=== PATIENT | male | born 1965 | race Caucasian/White ===

== ENCOUNTER 2017-11-28 08:52 | Outpatient (CLI) | payer BC ==
--- NOTE | 2017-11-28 09:38 | RAD ---
PA AND LATERAL VIEWS OF CHEST: Date: 11/28/17 HISTORY: Dyspnea. FINDINGS: The heart size in normal. The lungs are expanded without focal areas of consolidation, pneumothoraces , or pleural effusions. No acute osseous abnormalities are seen. IMPRESSION: No radiographic evidence of acute cardiopulmonary process. POS: [facility]
== END 2017-11-28 08:53 | disposition home or self-care (01) ==
LOC: RAD 08:52
PROVIDERS: ATTEND Internal Medicine Critical Care Medicine
DX: R06.00 Dyspnea, unspecified (principal)
CPT/HCPCS: 71046

== ENCOUNTER 2018-01-15 09:26 | Outpatient (CLI) | payer BC ==
--- NOTE | 2018-01-15 10:20 | RAD ---
TWO VIEW CHEST: History: Dyspnea. FINDINGS: The lungs are clear. No infiltrate. Vascular markings normal. Heart and mediastinum unremarkable. Oss eous structures unremarkable. IMPRESSION: No acute finding. POS: [facility]
== END 2018-01-15 09:27 | disposition home or self-care (01) ==
LOC: RAD 09:26
PROVIDERS: ATTEND Internal Medicine Critical Care Medicine
DX: R06.00 Dyspnea, unspecified (principal)
CPT/HCPCS: 71046

== ENCOUNTER 2018-08-05 09:16 | Outpatient (CLI) | payer BC ==
--- NOTE | 2018-08-05 09:33 | RAD ---
CHEST 2 VIEWS: Date: 08/05/18 COMPARISON: 01/15/18. HISTORY: Dyspnea. FINDINGS: Normal cardiac silhouette. Costophrenic angles are clear. No consolidation or mass. There are chronic changes. Stable calcified granuloma in the left lung base. No pneumothorax or osseous abnormalities. IMPRESSION: No acute cardiopulmonary process. POS: [facility]
== END 2018-08-05 09:17 | disposition home or self-care (01) ==
LOC: RAD 09:16
PROVIDERS: ATTEND Internal Medicine Critical Care Medicine
DX: R06.00 Dyspnea, unspecified (principal)
CPT/HCPCS: 71046

== ENCOUNTER 2019-01-01 08:17 | Outpatient (CLI) | payer BC ==
[2019-01-01 10:14] LABS: #Eosinphils 0.4 thou/uL (0.0-0.7); #Lymphocytes 1.8 thou/uL (1.20-3.40); #Monocytes 0.6 thou/uL (0.11-0.59); #Neutrophils 3.7 thou/uL (1.40-6.50); %Basophils 0.5 % (0.0-1.0); %Eosinophils 6.1 % (0.0-10.0); %Lymphocytes 27.6 % (21.0-51.0); %Monocytes 8.8 % (0.0-10.0); %Neutrophils 56.9 % (42.0-75.0); Hemoglobin 16.3 g/dL (14.0-18.0); Mean Corpuscular HGB CONC 32.6 g/dL (32.0-36.0); Mean Corpuscular Hemoglobin 29.4 pg (27.0-31.0); Mean Platelet Volume 6.9 fL (7.4-10.4); Platelet Count 237 thou/uL (130-400); RBC Distribution Width 11.9 % (11.5-14.5); Red Blood Cell (RBC) Count 5.56 mill/uL (4.70-6.10); White Blood Cell (WBC) Count 6.4 thou/uL (4.8-10.8)
[2019-01-01 10:26] LABS: ALT (SGPT) 24 U/L (8-55); AST (SGOT) 21 U/L (5-34); Albumin 4.6 g/dL (3.5-5.0); Alkaline Phosphatase 83 U/L (40-110); Anion Gap 13 mmol/L (10-20); BUN (Urea Nitrogen) 15 mg/dL (8.4-25.7); Bilirubin, Total 0.5 mg/dL (0.2-1.2); Calc. Creatinine Clearance 0 mL/min (70-130); Calcium 9.5 mg/dL (7.8-10.44); Carbon Dioxide 25 mmol/L (22-29); Chloride 106 mmol/L (98-107); Estimated GFR-MDRD 77; Globulin 3.3 g/dL (2.4-3.5); Glucose 91 mg/dL (70-105); Potassium 4.1 mmol/L (3.5-5.1); Protein, Total 7.9 g/dL (6.0-8.3); Sodium 140 mmol/L (136-145)
--- NOTE | 2019-01-01 16:58 | EKG ---
Test Reason : Blood Pressure : / mmHG Vent. Rate : 075 BPM Atrial Rate : 075 BPM P-R Int : 150 ms QRS Dur : 132 ms QT Int : 428 ms P-R-T Axes : 065 120 016 degrees QTc Int : 477 ms Normal sinus rhythm Right bundle branch block Left posterior fascicular block Bifascicular block Abnormal ECG Confirmed by HYACINTH SPEARS ([id number]) on 01/01/2019 4:58:33 PM Referred By: RONALD Confirmed By:HYACINTH SPEARS
== END 2019-01-01 08:18 | disposition home or self-care (01) ==
LOC: LABBT 08:17
PROVIDERS: ATTEND Surgery
DX: Z01.818 Encounter for other preprocedural examination (principal); K42.9 Umbilical hernia without obstruction or gangrene
CPT/HCPCS: 80053; 85025; 93005; 93010

== ENCOUNTER 2019-01-17 11:02 | Day surgery (SDC) | payer BC ==
[2019-01-01 08:21] VITALS: BMI 30.1
[2019-01-17] MEDS ORDERED: PROPOFOL 200 MG/20 ML VIAL ONE (11:33)
[2019-01-17] MEDS ORDERED: Ondansetron PF 4 MG/2 ML Vial ONE (11:33)
[2019-01-17] MEDS ORDERED: Ketorolac Tromethamine 30 MG/ML VIAL ONE (11:33)
[2019-01-17] MEDS ORDERED: Lidocaine 1% PF 5 ML VIAL ONE (11:33)
[2019-01-17] MEDS ORDERED: Bupivacaine HCl 0.5%/Epinephrine 1:200,000/PF 30 ml Vial ONE (12:49)
[2019-01-17] MEDS ORDERED: Fentanyl 100 MCG/2 ML VIAL ONE ×2 (13:04→13:20)
--- NOTE | 2019-01-17 19:45 | OP ---
DATE OF PROCEDURE: 01/17/2019 PREOPERATIVE DIAGNOSIS: Umbilical hernia. POSTOPERATIVE DIAGNOSIS: Umbilical hernia. PROCEDURE PERFORMED: Umbilical hernia repair with mesh, Ventralex ST small. ANESTHESIA: General. ESTIMATED BLOOD LOSS: Minimal. COMPLICATIONS: None. SPECIMEN: None. FINDINGS: Umbilical hernia. DESCRIPTION OF PROCEDURE: The patient was taken to the operating room and laid supine on the operating room table. After general anesthetic was obtained, the abdomen was shaved, prepped, and draped in a sterile fashion. A curved incision was made above the umbilicus. Cautery dissected down to and score the fascia. The umbilical stalk was amputated, exposing umbilical defect. The edges of the defect were freshened. The preperitoneal space was dissected through the defect. A small Ventralex ST mesh was brought in the sterile field. The underlay was placed in the preperitoneal space. Its tails laid out lateral. Tails were sewn via U-stitch of permanent braided suture to the edges of the fascia. The tails were cut at the level of the fascia. The fascia was closed over the mesh using braided suture. The wound was irrigated. Local anesthetic was applied. The umbilical stalk was tacked back down using 3-0 Vicryl. The skin was irrigated and closed using 4-0 Monocryl and Dermabond. The patient was sent to Recovery in stable condition. All instrument counts, needle counts, and lap counts were correct. Job ID: [id number]
== END 2019-01-17 15:15 | disposition home or self-care (01) ==
LOC: SDC 11:02
PROVIDERS: ATTEND Surgery
PROC: 0WUF0JZ Supplement Abdominal Wall with Synthetic Substitute, Open Approach (ICD-10-PCS; principal; 2019-01-17)
DX: K42.9 Umbilical hernia without obstruction or gangrene (principal); I10 Essential (primary) hypertension; J45.909 Unspecified asthma, uncomplicated; E78.5 Hyperlipidemia, unspecified; Z79.899 Other long term (current) drug therapy
CPT/HCPCS: J0670; J0690; J1885; J2001; J2405; J2704; J3010